=== PATIENT | female | born 1945 | race Caucasian/White ===

== ENCOUNTER 2022-01-18 13:18 | Outpatient (CLI) | payer MEDICARE, SELFPAY ==
--- NOTE | 2022-01-18 13:00 | CRLHL7_ITS ---
For Patients: As a result of the Century Cures Act, medical imaging exams and procedure reports are released immediately into your electronic medical record. You may view this report before your referring provider. If you have questions, please contact your health care provider. BILATERAL BREAST MRI WITHOUT AND WITH GADOLINIUM CLINICAL HISTORY: 75-year-old female with elevated risk of breast cancer due to prior tissue diagnosis of atypical ductal hyperplasia, status post LEFT excisional biopsy. INDICATION FOR BREAST MRI: Screening breast MRI in this high-risk woman. COMPARISON STUDIES: Breast MRI 02/01/2021, mammogram 07/26/2020, CONTRAST: 15 cc of Dotarem. TECHNIQUE: The patient was positioned prone using a breast coil. Multiple imaging sequences were obtained using 1-1.5 mm thick slices with no gap. The image sequences include T2-weighted STIR in the axial plane, T1-weighted nonfat-saturated gradient echo in the axial plane, pre- and post-contrast T1-weighted FLASH 3D with fat suppression in the axial plane, and T1-weighted FLASH high resolution 3D with fat suppression in the sagittal plane. Image post-processing was performed on a [employer] workstation. Complex 3D rendering including maximum intensity projections (MIPS) and volumetric renderings were obtained to optimize visualization of the extent of pathology and relationship to the nipple, skin, and chest wall. This aids in determining feasibility of breast conservation surgery. Subtraction, multiplanar reconstruction, mean curve determination, and angiogenesis mapping were also performed. The study was technically adequate. FINDINGS: Amount of Fibroglandular Tissue: Scattered fibroglandular tissue. Breast Background Enhancement: Mild to moderate. RIGHT Breast: No suspicious areas of enhancement. LEFT Breast: Postsurgical changes of excisional biopsy. No suspicious areas of enhancement. Lymph Nodes: No adenopathy. IMPRESSIONS AND RECOMMENDATIONS: Benign, there is no MRI evidence of malignancy. Continue annual screening mammography. BI-RADS Category 2: Benign A lay language report of this examination will be provided to the patient. Dictated by Dottie Mills MD @ 01/20/2022 8:45:06 AM emma/Dictated by: Dottie Mills MD @ 01/20/2022 8:45:00 AM (Electronically Signed)
== END 2022-01-18 13:19 | disposition home or self-care (01) ==
LOC: MRI 13:19
PROVIDERS: PCP Family Medicine; Visit Provider Internal Medicine Hematology & Oncology
DX: N60.82 Other benign mammary dysplasias of left breast (principal)
CPT/HCPCS: 77049; A9575

== ENCOUNTER 2022-07-25 13:49 | Outpatient (CLI) | payer MEDICARE, SELFPAY ==
--- NOTE | 2022-07-25 14:00 | CRLHL7_ITS ---
For Patients: As a result of the Century Cures Act, medical imaging exams and procedure reports are released immediately into your electronic medical record. You may view this report before your referring provider. If you have questions, please contact your health care provider. BILATERAL SCREENING MAMMOGRAM WITH COMPUTER-AIDED DETECTION TECHNIQUE: CC and MLO views were obtained. These mammographic images have been obtained using full-field digital technique. These mammographic images were interpreted with the benefit of computer-aided detection. COMPARISON FILM: 07/26/21, 07/27/20, 08/10/16. FINDINGS: There are scattered areas of fibroglandular density IMPRESSION: There is no radiographic evidence for malignancy. ASSESSMENT: BI-RADS Category 2: Benign RECOMMENDATION: Routine screening mammogram in 1 year. A lay language report of this examination will be provided to the patient. Monster Harmon M.D. Diagnostic Radiologist [email or web address] ANGEL/gen / be/Dictated by: Monster Harmon MD @ 07/26/2022 12:53:00 PM (Electronically Signed)
== END 2022-07-25 13:50 | disposition home or self-care (01) ==
PROVIDERS: PCP Family Medicine; Visit Provider Internal Medicine Hematology & Oncology
DX: Z12.31 Encounter for screening mammogram for malignant neoplasm of breast (principal)
CPT/HCPCS: 77067

== ENCOUNTER 2022-09-29 10:17 | Outpatient (RCR) | payer MEDICARE, SELFPAY ==
--- NOTE | 2022-07-08 15:24 | ONC.NURNOTE ---
LM for pt to call back to review [facility] oncology program ceasing and Dr. Lorenzo's transition to [facility], returning to [facility] Spring 2022. Pt due for f/u 10/2022 if continuing care here; screening mammogram sched 07/2022.
== END 2022-10-02 23:59 | disposition home or self-care (01) ==
LOC: CCIC 10:17
PROVIDERS: PCP Family Medicine; Visit Provider Internal Medicine Hematology & Oncology
DX: N60.91 Unspecified benign mammary dysplasia of right breast (principal); N60.92 Unspecified benign mammary dysplasia of left breast; Z87.891 Personal history of nicotine dependence; Z79.811 Long term (current) use of aromatase inhibitors
CPT/HCPCS: 99212; 99213; 99214

== ENCOUNTER 2023-01-19 13:00 | Outpatient (CLI) | payer MEDICARE, SELFPAY ==
--- NOTE | 2023-01-19 13:45 | CRLHL7_ITS ---
For Patients: As a result of the Century Cures Act, medical imaging exams and procedure reports are released immediately into your electronic medical record. You may view this report before your referring provider. If you have questions, please contact your health care provider. BILATERAL BREAST MRI WITHOUT AND WITH GADOLINIUM CLINICAL HISTORY: 77-year-old female with elevated risk of breast cancer due to prior ADH, status post excisional biopsy on the LEFT. INDICATION FOR BREAST MRI: Screening breast MRI in this high-risk woman. COMPARISON STUDIES: Mammogram 08/02/2022, 07/27/2020 is and 07/26/2021, breast MRI 01/18/2022. CONTRAST: 20 cc of dotarem. TECHNIQUE: The patient was positioned prone using a breast coil. Multiple imaging sequences were obtained using 1-1.5 mm thick slices with no gap. The image sequences include T2-weighted STIR in the axial plane, T1-weighted nonfat-saturated gradient echo in the axial plane, pre- and post-contrast T1-weighted FLASH 3D with fat suppression in the axial plane, and T1-weighted FLASH high resolution 3D with fat suppression in the sagittal plane. Image post-processing was performed on a [employer] workstation. Complex 3D rendering including maximum intensity projections (MIPS) and volumetric renderings were obtained to optimize visualization of the extent of pathology and relationship to the nipple, skin, and chest wall. This aids in determining feasibility of breast conservation surgery. Subtraction, multiplanar reconstruction, mean curve determination, and angiogenesis mapping were also performed. The study was technically adequate. FINDINGS: Amount of Fibroglandular Tissue: Scattered fibroglandular tissue. Breast Background Enhancement: Mild. RIGHT Breast: No suspicious areas of enhancement. LEFT Breast: Postsurgical changes of excisional biopsy. No suspicious areas of enhancement. Lymph Nodes: No adenopathy. IMPRESSIONS AND RECOMMENDATIONS: Benign, there is no MRI evidence of malignancy. Continued annual screening mammography. BI-RADS Category 2: Benign Dictated by Dottie Mills MD @ 01/25/2023 3:14:18 PM/quinton TOMMY/Dictated by: Dottie Mills MD @ 01/25/2023 3:14:00 PM (Electronically Signed)
== END 2023-01-19 13:01 | disposition home or self-care (01) ==
PROVIDERS: PCP Family Medicine; Visit Provider Internal Medicine Hematology & Oncology
DX: Z12.39 Encounter for other screening for malignant neoplasm of breast (principal); N60.82 Other benign mammary dysplasias of left breast; N60.81 Other benign mammary dysplasias of right breast
CPT/HCPCS: 77049; A9270; A9575

== ENCOUNTER 2023-01-19 13:24 | Outpatient (RCR) | payer MEDICARE, SELFPAY ==
--- NOTE | 2023-01-19 13:27 | A.ONCPRONO_ITS ---
[facility] Provider Note Clinic Note Narrative: Breast MRI sedation request Ms. Carlton follows at our clinic with medical oncology for management of atypical ductal hyperplasia. She was last seen by Dr. Rani Lorenzo 09/29/22. She is due for surveillance breast MRI today. She reports to me and to radiology that she doesn't think she can do the MRI today without a sedative. She confirms to me that her granddaughter is driving her home today. She has been given a sedative before, but is unsure what she has taken. She is alert, oriented and steady on her feet. After review of her medications and [place] [employer], will order oral dose of lorazepam 0.5mg PO today in the infusion center. Appreciate nursing to obtain vital signs and o2 sat prior to administration.
[2023-01-19] MEDS: LORazepam 0.5 MG TABLET PO (13:40)
[2023-01-19 13:48] VITALS: BP 134/70; PULSE 65; RESP 16; TEMP 36.2
== END 2023-07-18 23:59 | disposition home or self-care (01) ==
LOC: CCIC 13:24
PROVIDERS: PCP Family Medicine; Referring Provider Family Medicine; Visit Provider Clinical Nurse Specialist
DX: N60.91 Unspecified benign mammary dysplasia of right breast (principal); N60.92 Unspecified benign mammary dysplasia of left breast
CPT/HCPCS: A9270

== ENCOUNTER 2024-05-03 14:51 | Outpatient (CLI) | payer MEDICARE, SELFPAY ==
--- OUTSIDE RECORDS SUMMARY | 2024-05-03 14:58 | XMS_ITS | Clinical Summary ---
Author Organization [facility] Address [address] [place] [address] Care Team Providers Care Fleet Sales Manager Name Role Phone Chaparritarobelsterling Becky S Primary Care Provider [phone] Allergies No known active allergies Medications No known medications Social History Tobacco Use Types Packs/Day Years Used Date Smoking Tobacco: Never Assessed Adolescent Education Answer Date Record ed Getting School Help Needed Not on file 02/25 Comments Unknown Sex and Gender Information Value Date Recorded Sex Assigned at Not on file Legal Sex Female 9:06 PM CDT Gender Identity Not on file Sexual Orientation Not on file Last Filed Vital Signs Vital Sign Reading Time Taken Comments Blood Pressure 149/74 09/01/2023 12:00 PM CDT Pulse 65 09/01/2023 12:00 PM CDT Temperature 36.8 C (98.2 F) 09/01/2023 7:33 AM CDT Respiratory Rate 17 09/01/2023 10:00 AM CDT Oxygen Saturation 93% 09/01/2023 12:00 PM CDT Inhaled Oxygen Concentration - - Weight - - Height - - Body Mass Index - - Plan of Treatment Health Maintenance Due Date Last Done Comments ADVANCE CARE PLANNING 1945 ANNUAL REVIEW OF HM ORDERS 1945 DEXA 1945 HEPATITIS C SCREENING 10/21/1963 DTAP/TDAP/TD IMMUNIZATION (1 - Tdap) 1970 LIPID 1985 ZOSTER IMMUNIZATION (1 of 2) 10/21/1995 FALL RISK ASSESSMENT 2010 RSV VACCINE (1 - 1-dose 75+ series) 2020 PHQ-2 (once per calendar year) 2023 MEDICARE ANNUAL WELLNESS VISIT 12/01/2023 11/30/2022, 11/19/2021, 05/20/2020 COVID-19 Vaccine ( season) 2024 03/03/2021, 02/03/2021 INFLUENZA VACCINE (#1) 2024 , 03/02/2022, 05/21/2021, Additional history exists GLUCOSE 08/31/2026 09/01/2023 Pneumococcal Vaccine: 65+ Years Completed 05/20/2020, 05/20/2019 HPV IMMUNIZATION Aged Out No longer e ligible based on patient's age to complete this topic MENINGITIS IMMUNIZATION Aged Out No l onger eligible based on patient's age to complete this topic RSV MONOCLONAL ANTIBODY Aged Out No l onger eligible based on patient's age to complete this topic Procedures Procedure Name Priority Date/Time Associated Diagnosis Comments COMPREHENSIVE METABOLIC PANEL STAT 09/01/2023 8:05 AM CDT from Last 3 Months or Most Recently Relevant to Health Maintenance Results * (ABNORMAL) Comprehensive metabolic panel (09/01/2023 8:05 AM CDT) Sodium 138 135 - 145 mmol/L 09/01/2023 8:33 AM CDT [facility] Comment:Reference intervals for this test were updated on 02/28/2023 to more accurately reflect our healthy population. There may be differences in the flagging of prior results with similar values performed with this method. Interpretation of those prior results can be made in the context of the updated reference intervals. Potassium 3.9 3.4 - 5.3 mmol/L 09/01/2023 8:33 AM CDT [facility] Carbon Dioxide (CO2) 28 22 - 29 mmol/L 09/01/2023 8:33 AM CDT [facility] Anion Gap 9 7 - 15 mmol/L 09/01/2023 8:33 AM CDT [facility] Urea Nitrogen 16.2 8.0 - 23.0 mg/dL 09/01/2023 8:33 AM CDT [facility] Creatinine 0.91 0.51 - 0.95 mg/dL 09/01/2023 8:33 AM CDT [facility] GFR Estimate 65 >60 mL/min/1. 73m2 09/01/2023 8:33 AM CDT [facility] Calcium 10.8(H) 8.8 - 10.2 mg/dL 09/01/2023 8:33 AM CDT [facility] Chloride 101 98 - 107 mmol/L 09/01/2023 8:33 AM CDT [facility] Glucose 110(H) 70 - 99 mg/dL 09/01/2023 8:33 AM CDT [facility] Alkaline Phosphatase 50 40 - 150 U/L 09/01/2023 8:33 AM CDT [facility] Comment:Reference intervals for this test were updated on 04/18/2023 to more accurately reflect our healthy population. There may be differences in the flagging of prior results with similar values performed with this method. Interpretation of those prior results can be made in the context of the updated reference intervals. AST 14 0 - 45 U/L 09/01/2023 8:33 AM CDT [facility] Comment:Reference intervals for this test were updated on 11/14/2022 to more accurately reflect our healthy population. There may be differences in the flagging of prior results with similar values performed with this method. Interpretation of those prior results can be made in the context of the updated reference intervals. ALT 12 0 - 50 U/L 09/01/2023 8:33 AM CDT [facility] Comment:Reference intervals for this test were updated on 11/14/2022 to more accurately reflect our healthy population. There may be differences in the flagging of prior results with similar values performed with this method. Interpretation of those prior results can be made in the context of the updated reference intervals. Protein Total 6.7 6.4 - 8.3 g/dL 09/01/2023 8:33 AM CDT [facility] Albumin 3.9 3.5 - 5.2 g/dL 09/01/2023 8:33 AM CDT [facility] Bilirubin Total 0.2 <=1.2 mg/dL 09/01/2023 8:33 AM CDT [facility] Blood VENOUS LINE / Unknown Venipuncture / Unknown 09/01/2023 8:05 AM CDT 09/01/2023 8:09 AM CDT Renetta Trotter MD LAB - BLOOD ORDERABLES F inal Result [facility] [address] (1st floor, no room number) [place] [address], [facility] from Last 3 Months or Most Recently Relevant to Health Maintenance Insurance [employer] MEDICARE [employer] Care Teams Fleet Sales Manager Relationship Specialty [place] [address] [place] [address] PCP - General Family Medicine 09/01/23
--- OUTSIDE RECORDS SUMMARY | 2024-05-03 14:58 | XMS_ITS | Referral Summary ---
Author Organization [facility] Address [address] [facility] [place] [address] Care Team Providers Care Multiple Coil Winder Name Role Phone ChaparritarobelShaka katzluis manuel Amaya Primary Care Provider [phone] Allergies No known active allergies Medications No [...] Mass Index - - Plan of Treatment Not on file Procedures Procedure Name Priority Date/Time Associated Diagnosis [...] AM CDT 09/01/2023 8:09 AM CDT Renetta Trotetr MD LAB - BLOOD ORDERABLES F inal Result [facility] [address] [facility] (1st floor, no room number) [place] [address], [facility] from Last 3 Months or Most Recently Relevant to Health Maintenance Insurance [facility] MEDICARE [facility] MEDICARE Care Teams Multiple Coil Winder Relationship Specialty [place] [address] [place] [place] [address] PCP - General Family Medicine 09/01/23
--- OUTSIDE RECORDS SUMMARY | 2024-05-03 14:58 | XMS_ITS | Clinical Summary ---
Author Organization [facility] Address [address] [place] [address] Care Team Providers Care Material Engineer Name Role Phone Becky Hurley DO Primary Care Provider [phone] Source Comments You are receiving this document as you are listed as the primary care provider,follow-up provider, or the patient has been referred to you for consultation.This is in compliance with the Medicare and[facility] EHR Incentive Program,which states Providers who transition their patient to another setting of careor provider of care or refers their patient to another provider of care shouldprovide summary care record for each transition of care or referral. [facility] Allergies No known active allergies Medications Medication Sig Dispensed Refills Start Date End Date Status acetaminophen (TYLENOL) 500 MG tablet Take 2 Tablets by mouth three times a day. Maximum acetaminophen dose is 4000 mg in 24 hours 30 Tablet 09/03/2020 Active Social History Tobacco Use Types Packs/Day Years Used Date Smoking Tobacco: Never Assessed Sex and Gender Information Value Date Recorded Sex Assigned at Not on file Gender Identity Not on file Sexual Orientation Not on file Last Filed Vital Signs Vital Sign Reading Time Taken Comments Blood Pressure 148/74 09/03/2020 8:10 AM CDT Pulse 91 09/03/2020 8:10 AM CDT Temperature 36.6 C (97.8 F) 09/03/2020 8:10 AM CDT Respiratory Rate 16 09/03/2020 8:10 AM CDT Oxygen Saturation 97% 09/03/2020 8:10 AM CDT Inhaled Oxygen Concentration - - Weight 60.3 kg (133 lb) 09/03/2020 7:00 AM CDT Height 152.4 cm (5') 09/03/2020 12:59 AM CDT Body Mass Index 25.97 09/03/2020 12:59 AM CDT Plan of Treatment Health Maintenance Due Date Last Done Comments Hep C Screening (Preventive Services) 1945 Medicare Annual Wellness Visit 1945 DTaP/Tdap/Td (1 - Tdap) 1964 Zoster/Shingles (1 of 2) 10/21/1995 Dexa 2010 RSV (1 - 1-dose 75+ series) 2020 COVID-19 Vaccine (2 - 2023-2 5 season) 2024 02/03/2021 Influenza (#1) 2024 05/20/2020, 05/20/2019 Pneumococcal 65+ Yrs Completed 05/20/2020, 05/20/2019 HepA Aged Out No longer eligi ble based on patient's age to complete this topic HepB Aged Out No longer eligi ble based on patient's age to complete this topic Hib Aged Out No longer eligi ble based on patient's age to complete this topic IPV (Polio) Aged Out No longer eligi ble based on patient's age to complete this topic RSV Aged Out No longer eligi ble based on patient's age to complete this topic MCV4 Aged Out No longer eligi ble based on patient's age to complete this topic Advance Directives * Full Code (Latest Code Status on File) Date Activated Date Inactivated Comments 09/03/2020 12:56 AM 09/03/2020 4:37 PM Care Teams Material Engineer Relationship Specialty [place] [address] [place] [address] PCP - General Family Practice 09/02/20
--- OUTSIDE RECORDS SUMMARY | 2024-05-03 14:59 | XMS_ITS | Clinical Summary ---
Author Organization [employer] [facility] Address [place], [place] [address] Care Team Providers Care Sr. Merchandise Planner Name Role Phone Becky Hurley Primary Care Provider Allergies No known active allergies Medications Medication Sig Dispensed Refills Start Date End Date Status aspirin (ECOTRIN) 81 mg enteric coated tablet Take 1 tablet by mouth once daily with a meal. 0 9 Active Blood Pressure Monitor (Blood Pressure Kit) KitIndications:Dwain junior hypertension Diagnosis: hypertension Use as directed. OMRON arm cuff 1 Each 3 Active fexofenadine (VJ) 180 mg tablet Take 180 mg by mouth once daily. Active cholecalciferol, Vitamin D3, (Vitamin D-3) 5,000 unit tab tabletIndications:Vi tamin D deficiency Take 1 Tablet (5,000 units) by mouth once daily. 90 Tablet 3 3 Active rosuvastatin (CRESTOR) 20 mg tabletIndications:Ce rebrovascular accident (CVA) due to stenosis of middle cerebral artery, unspecified blood vessel laterality (HC),Dyslipidemia TAKE 1 TABLET BY MOUTH AT BEDTIME 90 Tablet 3 4 Active alendronate (FOSAMAX) 35 mg tabletIndications:Os teopenia of multiple sites TAKE 1 TABLET BY MOUTH WEEKLY IN THE MORNING ON AN EMPTY STOMACH WITH A FULL GLASS OF WATER. 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 90 Tablet 1 4 Active ondansetron (ZOFRAN ODT) 4 mg disintegrating tabletIndications:Na usea Place 1 Tablet (4 mg) on the tongue every 8 hours if needed for Nausea/Vomiting. 30 Tablet 1 4 Active fenofibrate nanocrystallized (TRICOR) 145 mg tabletIndications:Dy slipidemia Take 1 Tablet (145 mg) by mouth once daily with a meal. 100 Tablet 3 4 Active levothyroxine (SYNTHROID) 75 mcg tabletIndications:Hy pothyroidism (acquired) Take 1 Tablet (75 mcg) by mouth before breakfast. 100 Tablet 3 4 Active propranolol ER (INDERAL LA) 80 mg Cs24 Sustained-Release capsuleIndications:M igraine without aura and without status migrainosus, not intractable Take 1 Capsule (80 mg) by mouth once daily. 100 Capsule 3 4 Active amLODIPine (NORVASC) 5 mg tabletIndications:Es sential hypertension Take 1 Tablet (5 mg) by mouth once daily. 100 Tablet 3 4 Active escitalopram oxalate (LEXAPRO) 10 mg tabletIndications:Se nova episode of recurrent major depressive disorder, without psychotic features (HC) Take 1 Tablet (10 mg) by mouth once daily. 100 Tablet 3 4 Active fenofibrate nanocrystallized (TRICOR) 145 mg tabletIndications:Dy slipidemia Take 1 Tablet (145 mg) by mouth once daily with a meal. 90 Tablet 3 3 05/01/20 24 Discontinue d(Reorder (E-cancel not sent)) levothyroxine (SYNTHROID) 75 mcg tabletIndications:Hy pothyroidism (acquired) Take 1 Tablet (75 mcg) by mouth before breakfast. 90 Tablet 3 3 05/01/20 24 Discontinue d(Reorder (E-cancel not sent)) amLODIPine (NORVASC) 5 mg tabletIndications:Es sential hypertension TAKE 1 TABLET BY MOUTH ONCE DAILY 90 Tablet 3 4 05/01/20 24 Discontinue d(Reorder (E-cancel not sent)) propranolol ER (INDERAL LA) 80 mg Cs24 Sustained-Release capsuleIndications:M igraine without aura and without status migrainosus, not intractable TAKE 1 CAPSULE BY MOUTH ONCE DAILY 90 Capsule 4 05/01/20 24 Discontinue d(Reorder (E-cancel not sent)) escitalopram oxalate (LEXAPRO) 10 mg tabletIndications:Se nova episode of recurrent major depressive disorder, without psychotic features (HC) Take 1 Tablet (10 mg) by mouth once daily. 90 Tablet 1 4 05/01/20 24 Discontinue d(Reorder (E-cancel not sent)) nitrofurantoin macrocrystals/monohy drate (MACROBID) 100 mg capsuleIndications:U TI (urinary tract infection), uncomplicated Take 1 Capsule (100 mg) by mouth two times daily for 5 days. 10 Capsule 4 04/23/20 24 Active Problems Problem Noted Date Diagnosed Date Mild cognitive impairment 05/01/2024 Bilateral primary osteoarthritis of knee 024 Severe episode of recurrent major depressive disorder, without psychotic features 05/01/2024 Migraine without aura and wi thout status migrainosus, not intractable 05/01/2024 Current severe episode of ma stormy depressive disorder without psychotic features, unspecified whether recurrent 03/22/2023 Age-related osteoporosis wit hout current pathological fracture 12/08/2022 Overview (12/08/2022): DEXA 06/25/19: T-scores AP: 1.8, LFN -1.4, RFN -1.6. FRAX 11.1. DEXA 12/05/22: T-scores AP: 2.1, LFN -1.5, RFN -1.9. Forearm -3.0. osteoporosis. Stay on Fosamax for 5 years. Repeat DEXA in 2 years. History of melanoma 03/02/2022 Occult blood positive stool 02/03/2021 Overview (02/03/2021): Diagnostic colonoscopy ordered. Atypical ductal hyperplasia, breast 08/15/2019 Overview (12/16/2019): Left breast biopsy 12/2019: Proliferative fibrocystic change including intraductal papilloma COPD, mild 07/31/2019 Overview (07/31/2019): Spirometry 01/10/19 normal. Given an albuterol inhaler as needed for shortness of breath. Quit smoking 08/2017, smoked for a total of 60+ years 1ppd. Osteopenia of multiple sites 07/03/2019 Overview (12/08/2022): DEXA 06/25/19: T-scores AP: 1.8, LFN -1.4, RFN -1.6. FRAX 11.1. DEXA 12/05/22: T-scores AP: 2.1, LFN -1.5, RFN -1.9. Forearm -4.1. osteoporosis. Stay on Fosamax for 5 years. Repeat DEXA in 2 years. Tension headache 01/11/2019 Venous stasis 01/11/2019 Former smoker 01/11/2019 Environmental allergies 01/11/2019 Depression, major, in remission 10/03/2018 Essential hypertension 07/23/2018 Hypothyroidism (acquired) 07/23/2018 Overactive bladder 07/23/2018 Cerebrovascular accident (CV A) due to stenosis of middle cerebral artery 07/23/2018 Dyslipidemia 07/23/2018 Encounters Date Type Department Care Team Description 05/01/2024 12:45 PM COMMUNITY SUPPORT WORKER Ancillary Procedure [facility] [place] [address] [facility] [place] [place] [address] Arrived 05/01/2024 11:40 AM COMMUNITY SUPPORT WORKER Office Visit [facility] [place] [address] [place] [address] Becky Hurley, DO Medication Management (follow up); Immunization/Injecti on 05/01/2024 Travel 04/26/2024 Telephone [facility] [address] [place] [phone] Sulma Lewis, PhD, Error-please disregard 04/18/2024 9:45 AM COMMUNITY SUPPORT WORKER Orders Only [facility] [place] [address] [place] [address] Lab, Farm [facility] 04/18/2024 Orders Only [facility] [place] [address] [place] [address] Amira Gonzalez PA <No scans attached> 04/18/2024 Orders Only [facility] [place] [address] [place] [address] Amira Gonzalez PA <No scans attached> 04/18/2024 Travel 04/17/2024 Telephone [facility] [place] [address] [place] [address] Amira Gonzalez PA Lab (UA order ) 04/16/2024 3:40 PM COMMUNITY SUPPORT WORKER Orders Only [facility] [address] [address] <No scans attached> 04/16/2024 3:00 PM COMMUNITY SUPPORT WORKER Ancillary Procedure [facility] [address] [address] 04/16/2024 1:25 PM COMMUNITY SUPPORT WORKER Office Visit [facility] [place] [address] [place] [address] Amira Gonzalez PA Abdominal Pain (Cramping, nausea, diarrhea x 2 weeks ) 04/16/2024 Travel 04/11/2024 Telephone [facility] [place] [address] [place] [address] Becky Hurley DO Questions (Questions about care plan) 04/03/2024 10:00 AM CDT Office Visit [facility] [id number] [place] [address] James Melgar, EFREN Follow Up 04/03/2024 Travel 03/27/[address] [address] James Melgar NP Refill Request (Risperidone, Escitalopram Oxalate, Trazodone) 03/12/[address] [address] James Melgar NP Refill Request (Risperidone, Trazodone) 03/12/2024 Refill [facility] [place] [address] [place] [address] Becky Hurley DO Refill Request (Propranolol Er) 02/28/2024 10:00 AM CDT Office Visit [address] [address] James Melgar NP Follow Up 02/28/2024 Travel 02/15/[address] [address] James Melgar NP Refill Request (Escitalopram Oxalate) 02/09/2024 Refill [facility] [place] [address] [place] [address] Becky Hurley DO Refill Request (Propranolol Er) from Last 3 Months Immunizations Name Administration Dates Next Due COVID-19 vaccine (Moderna 100mcg/0.5mL) PF, MDV 03/03/2021,02/03/2021 Influenza, Inactivated AIIV4 (Age 65+ Years) Preserv Free 02/10/2023,03/02/2022,05/21/2021,2019 Influenza, Inactivated IIV3 (Age 65+ Years) Preserv Free 05/01/2024,05/20/2019 Pneumococcal Poly,23-Valent (Pneumovax) 05/20/2020 Pneumococcal conj 13-Valent (Prevnar 13) 05/20/2019 Family History Medical History Relation Name Comments No Known Problems Father Cancer-breast Maternal Aunt No Known Problems Mother Cancer-breast Other Maternal Cousi n Cancer-breast Sister Cancer-ovarian No Family History Relation Name Status Comments Father Maternal Aunt Mother Other Sister Social History Tobacco Use Types Packs/Day Years Used Date Smoking Tobacco: Every Day Cigarettes 0.2 1.3 Started: 01/2023; Last attempted to quit: 08/03/2017 Smokeless Tobacco: Former Tobacco Cessation:Ready to Q uit: Yes; Counseling Given: Yes Comments:1-2 cig a day. 11/08/2023 Alcohol Use Standard Drinks/Week Comments Yes 0 (1 standard drink = 0.6 oz pure alcohol) occassionally, monthly or less; 11/2023 PHQ-2 Answer Date Recorded PHQ-2 TOTAL SCORE 4 05/01/2024 Social Connections Answer Date Recorded Do you often feel lonely or isolated from those around you? 4 04/16/2024 Financial Resource Strain Answer Date R ecorded Difficulty of Paying Living Expenses 3 04/16/2024 Difficulty of Paying Living Expenses Not on file 04/16/2024 Food Insecurity Answer Date Recorded Do you worry your food will run out before you are able to buy more? 1 04/16/2024 Transportation Needs Answer Date Record ed Does lack of transportation keep you from medica l appointments? 1 04/16/2024 Does lack of transportation keep you from work, meetings or getting things that you need? 1 04/16/2024 Housing Stability Answer Date Recorded What is your housing situation today? 1 04/16/2024 Sex and Gender Information Value Date Recorded Sex Assigned at Not on file Gender Identity Not on file Sexual Orientation Not on file Obstetrics History Last Filed Vital Signs Vital Sign Reading Time Taken Comments Blood Pressure 114/64 05/01/2024 11:52 AM COMMUNITY SUPPORT WORKER Pulse 60 05/01/2024 11:52 AM COMMUNITY SUPPORT WORKER Temperature 37.1 C (98.7 F) 04/16/2024 1:34 PM COMMUNITY SUPPORT WORKER Respiratory Rate 18 12/02/2022 3:04 PM CDT Oxygen Saturation 97% 05/01/2024 11:52 AM COMMUNITY SUPPORT WORKER Inhaled Oxygen Concentration - - Weight 60.8 kg (134 lb) 05/01/2024 11:52 AM COMMUNITY SUPPORT WORKER Height 154.9 cm (5' 1) 04/16/2024 1:34 PM COMMUNITY SUPPORT WORKER Body Mass Index 25.32 04/16/2024 1:34 PM COMMUNITY SUPPORT WORKER Plan of Treatment Upcoming Encounters Date Type Department Care Team (Late st Contact Info) Description 05/14/2024 1:00 PM COMMUNITY SUPPORT WORKER Office Visit [facility] [place] [address] [place] [address] Lizzy Hernández PA [address] [place] [address] 05/22/2024 1:15 PM COMMUNITY SUPPORT WORKER Office Visit [facility] [place] [address] [place] [address] [place] [address] [place] [address] 05/22/2024 2:30 PM COMMUNITY SUPPORT WORKER Office Visit [facility] [address] [place] [phone] Sulma Lewis, PhD, LP [address] [place] [address] 05/23/2024 11:30 AM COMMUNITY SUPPORT WORKER Office Visit [facility] [address] [place] [address] [place] [address] [place] [address] 06/10/2024 2:30 PM COMMUNITY SUPPORT WORKER Office Visit [facility] [address] [place] [phone] Sulma Lewis, PhD, LP [address] [place] [address] 06/24/2024 2:30 PM COMMUNITY SUPPORT WORKER Office Visit [facility] [address] [place] [phone] Sulma Lewis, PhD, LP [address] [place] [address] 07/08/2024 2:30 PM COMMUNITY SUPPORT WORKER Office Visit [facility] [address] [place] [phone] Sulma Lewis, PhD, LP [address] [place] [address] 11/20/2024 11:15 AM CDT Office Visit [facility] [place] [address] [place], [place] [phone] [place] [address] [facility] [place], [place] [phone] Health Maintenance Due Date Last Done Comments Tdap 1956 Tetanus booster 1965 Zoster (shingles) series for age 50+ (1 of 2) 10/21/1995 RSV vaccine for adults or (1 - 1-dose 75+ series) 2020 COVID-19 vaccine series ( season) 2024 03/03/2021, 02/03/2021 Medicare Wellness for age 65+ 11/29/2024, 11/30/2022, 11/19/2021, Additional history exists BMI (ht and wt on same day) for age 18+ 04/16/2025 04/16/2024, 11/29/2023, 03/22/2023, Additional history exists Depression screening for age 12+ 05/01/2025 05/01/2024, 04/03/2024, 02/28/2024, Additional history exists Hepatitis C screening for ag e 18-79 Completed 05/20/2019 Pneumococcal series for age 65+ Completed , 05/20/2019 DEXA/DXA scan for age 65+ Completed 12/05/2022, Influenza for age 65+ Completed 05/01/2024 , 02/10/2023, 03/02/2022, Additional history exists Procedures Procedure Name Priority Date/Time Associated Diagnosis Comments BASIC METABOLIC PANEL Routine 05/01/2024 1:15 PM COMMUNITY SUPPORT WORKER Essential hypertension LIPID PANEL W REFLEX MEASURED LDL Routine 05/01/2024 1:15 PM COMMUNITY SUPPORT WORKER Dyslipidemia TSH WITH REFLEX Routine 05/01/2024 1:15 PM COMMUNITY SUPPORT WORKER Hypothyroidism (acquired) XR KNEE WB 1 VIEW AP BILATERAL AND 2 VIEWS BILATERAL Routine 05/01/2024 12:56 PM COMMUNITY SUPPORT WORKER Bilateral primary osteoarthritis of knee URINE CULTURE Add On 04/18/2024 10:31 AM COMMUNITY SUPPORT WORKER Abdominal pain, generalized URINALYSIS MICROSCOPIC Add On 04/18/2024 10:31 AM COMMUNITY SUPPORT WORKER Abdominal pain, generalized URINALYSIS MACROSCOPIC - [facility] ONLY POC DIP ([facility]) Routine 04/18/2024 10:03 AM COMMUNITY SUPPORT WORKER Abdominal pain, generalized CT ABDOMEN PELVIS W JETHRO 04/16/2024 3:19 PM COMMUNITY SUPPORT WORKER Acute diarrhea Abdominal pain, generalized CREATININE,ISTAT Routine 04/16/2024 3:02 PM COMMUNITY SUPPORT WORKER Observation or evaluation for suspected condition CBC WITH AUTO DIFFERENTIAL Routine 04/16/2024 1:54 PM COMMUNITY SUPPORT WORKER Acute diarrhea LIPASE Routine 04/16/2024 1:54 PM COMMUNITY SUPPORT WORKER Acute diarrhea COMP METABOLIC PANEL Routine 04/16/2024 1:54 PM COMMUNITY SUPPORT WORKER Acute diarrhea XR DXA BONE DENSITY 2 SITES AXIAL AND 1 SITE PERIPHERAL Routine 12/05/2022 1:37 PM CDT Osteopenia of multiple sites ANTI HCV Routine 05/20/2019 2:03 PM COMMUNITY SUPPORT WORKER Need for hepatitis C screening test from Last 3 Months or Most Recently Relevant to Health Maintenance Results * TSH WITH REFLEX (05/01/2024 1:15 PM COMMUNITY SUPPORT WORKER) TSH W/REFLEX TO FT4 1.58 0.40 - 4.50 mIU/L [facility] Blood BLOOD SPECIMEN / Unknown 05/01/2024 1:15 PM COMMUNITY SUPPORT WORKER 05/01/2024 1:16 PM COMMUNITY SUPPORT WORKER Becky Sue Xavi DO CHEMISTRY [facility] [address] [place] [address], [facility] [address] [place] [address] * (ABNORMAL) LIPID PANEL W REFLEX MEASURED LDL (05/01/2024 1:15 PM COMMUNITY SUPPORT WORKER) Pathologist [facility] CHOLESTEROL, TOTAL 151 <200 mg/dL [facility] HDL CHOLESTEROL 61 > OR = 50 mg/dL [facility] TRIGLYCERIDES 166(H) <150 mg/dL [facility] LDL-CHOLESTEROL 66 mg/dL (calc) [facility] Comment: Reference range: <100 Desirable range <100 mg/dL for primary prevention; <70 mg/dL for patients with CHD or diabetic patients with > or = 2 CHD risk factors. LDL-C is now calculated using the Jaron calculation, which is a validated novel method providing better accuracy than the Friedewald equation in the estimation of LDL-C. Oziel SEE et al. MYKE. 2013;310(19): 2253-5121 (http://education.[employer]/faq/YTG108) CHOL/HDLC RATIO 2.5 <5.0 (calc) [facility] NON HDL CHOLESTEROL 90 <130 mg/dL (calc) [facility] Comment: For patients with diabetes plus 1 major ASCVD risk factor, treating to a non-HDL-C goal of <100 mg/dL (LDL-C of <70 mg/dL) is considered a therapeutic option. Blood BLOOD SPECIMEN / Unknown 05/01/2024 1:15 PM COMMUNITY SUPPORT WORKER 05/01/2024 1:16 PM COMMUNITY SUPPORT WORKER Becky Huang Xavi DO CHEMISTRY [facility] [address] [place] [address], [facility] [address] [place] [address] * (ABNORMAL) BASIC METABOLIC PANEL (05/01/2024 1:15 PM COMMUNITY SUPPORT WORKER) Pathologist [facility] GLUCOSE 86 65 - 99 mg/dL [facility] Comment: Fasting reference interval UREA NITROGEN (BUN) 15 7 - 25 mg/dL [facility] CREATININE 1.01(H) 0.60 - 1.00 mg/dL [facility] EGFR 57(L) > OR = 60 mL/min/1.7 3m2 [facility] BUN/CREATININE RATIO 15 6 - 22 (calc) [facility] SODIUM 137 135 - 146 mmol/L [facility] POTASSIUM 3.9 3.5 - 5.3 mmol/L [facility] CHLORIDE 102 98 - 110 mmol/L [facility] CARBON DIOXIDE 27 20 - 32 mmol/L [facility] ELECTROLYTE BALANCE 8 7 - 17 mmol/L (calc) [facility] CALCIUM 9.8 8.6 - 10.4 mg/dL [facility] Blood BLOOD SPECIMEN / Unknown 05/01/2024 1:15 PM COMMUNITY SUPPORT WORKER 05/01/2024 1:16 PM COMMUNITY SUPPORT WORKER Becky Huang Xavi DO CHEMISTRY [facility] [address] [place] [address], [facility] [address] [place] [address] * XR KNEE WB 1 VIEW AP BILATERAL AND 2 VIEWS BILATERAL (05/01/2024 12:56 PM COMMUNITY SUPPORT WORKER) Anatomical Region Laterality Modality KNEES Computed Radiogr aphy 05/01/2024 4:11 PM COMMUNITY SUPPORT WORKER Narrative 05/01/2024 4:11 PM COMMUNITY SUPPORT WORKER For Patients: As a result of the Cures Act, medical imaging exams and procedure reports are released immediately into your electronic medical record. You may view this report before your referring provider. If you have questions, please contact your health care provider. Indication: Bilateral primary osteoarthritis of knee Technique: Three views each knee, 6 views total Comparison: None Findings: Vascular calcifications noted bilaterally. Severe narrowing at the lateral facet of the right patellofemoral compartment with reactive sclerotic change. Lateral compartment narrowing and spurring right knee. Medial compartment narrowing left knee. Osteopenia. No fracture. No large joint effusion. Impression: Severe patellofemoral compartment degenerative joint disease right knee. Milder lateral compartment degenerative joint disease right knee and medial compartment degenerative joint disease left knee. Dictated by Monster Harmon MD @ 05/01/2024 4:11:56 PM (Electronically Signed) Procedure Note Monster Harmon MD - 05/01/2024 For Patients: As a result of the s Act, medical imagingexams and procedure reports are released immediately into your electronicmedical record. You may view this report before your referring provider.If you have questions, please contact your health care provider. Indication: Bilateral primary osteoarthritis of knee Technique: Three views each knee, 6 views total Comparison: None Findings: Vascular calcifications noted bilaterally. Severe narrowing at the lateralfacet of the right patellofemoral compartment with reactive scleroticchange. Lateral compartment narrowing and spurring right knee. Medialcompartment narrowing left knee. Osteopenia. No fracture. No large jointeffusion. Impression: Severe patellofemoral compartment degenerative joint disease right knee. Milder lateral compartment degenerative joint disease right knee andmedial compartment degenerative joint disease left knee. Dictated by Monster Harmon MD @ 05/01/2024 4:11:56 PM (Electronically Signed) Becky Hurley DO GENERAL IMAGING * (ABNORMAL) URINALYSIS MICROSCOPIC (04/18/2024 10:31 AM COMMUNITY SUPPORT WORKER) WBC UA PACKED(A) < OR = 5 /HPF [facility] RBC UA 0-2 < OR = 2 /HPF [facility] SQUAMOUS EPITHELIAL CELLS UA 10-20(A) < OR = 5 /HPF [facility] BACTERIA UA MANY(A) NONE SEEN /HPF [facility] HYALINE CAST 6-10(A) NONE SEEN /LPF [facility] NOTE UA [facility] Comment: This urine was analyzed for the presence of WBC, RBC, bacteria, casts, and other formed elements. Only those elements seen were reported. Urine URINE SPECIMEN / Unknown 04/18/2024 10:31 AM COMMUNITY SUPPORT WORKER 04/18/2024 10:31 AM COMMUNITY SUPPORT WORKER Amira CHANDLER URINE [facility] [address] [place] [address], [facility] [address] [place] [address] * (ABNORMAL) URINE CULTURE (04/18/2024 10:31 AM COMMUNITY SUPPORT WORKER) CULTURE, URINE, ROUTINE SEE NOTE(A) [facility] Comment: CULTURE, URINE, ROUTINE Micro Number: [id number] Test Status: Final Specimen Source: Urine, clean catch Specimen Quality: Adequate Result: Greater than 100,000 CFU/mL of Escherichia coli E.coli INT CINTHIA AMOX/CLAVULANATE S 4 AMP/SULBACTAM S 4 CEFAZOLIN NR <=4 2 CEFEPIME S <=0.12 CEFTAZIDIME S <=1 CEFTRIAXONE S <=0.25 CIPROFLOXACIN S <=0.06 GENTAMICIN S <=1 IMIPENEM S <=0.25 LEVOFLOXACIN S <=0.12 MEROPENEM S <=0.25 NITROFURANTOIN S <=16 PIP/TAZOBACTAM S <=4 TRIMETHOPRIM/SULFA S <=20 S = Susceptible I = Intermediate R = Resistant NS = Not susceptible SDD = Susceptible Dose Dependent * = Not Tested NR = Not Reported NN = See Therapy Comments THERAPY COMMENTS Note 1: For infections other than uncomplicated UTI caused by E. coli, K. pneumoniae or P. mirabilis: Cefazolin is resistant if CINTHIA > or = 8 mcg/mL. (Distinguishing susceptible versus intermediate for isolates with CINTHIA < or = 4 mcg/mL requires additional testing.) Note 2: For uncomplicated UTI caused by E. coli, K. pneumoniae or P. mirabilis: Cefazolin is susceptible if CINTHIA <32 mcg/mL and predicts susceptible to the oral agents cefaclor, cefdinir, cefpodoxime, cefprozil, cefuroxime, cephalexin and loracarbef. Urine URINE SPECIMEN / Unknown 04/18/2024 10:31 AM COMMUNITY SUPPORT WORKER 04/18/2024 10:31 AM COMMUNITY SUPPORT WORKER Amira CHANDLER MICROBIOLOGY [facility] [address] [place] [address], [facility] [address] [place] [address] * (ABNORMAL) POCT Urinalysis Dipstick Only (04/18/2024 10:03 AM COMMUNITY SUPPORT WORKER) Pathologist [facility] PH 5.5 5.0 - 8.[address] [facility] SPECIFIC GRAVITY 1.020 1.001 - 1.[address] [facility] GLUCOSE NEGATIVE NEGATIVE [facility] BILIRUBIN NEGATIVE NEGATIVE [facility] KETONES NEGATIVE NEGATIVE [facility] OCCULT BLOOD 1+(A) NEGATIVE [facility] PROTEIN 1+(A) NEGATIVE [facility] NITRITE POSITIVE(A) NEGATIVE [facility] LEUKOCYTE ESTERASE 2+(A) NEGATIVE [facility] Urine URINE SPECIMEN / Unknown 04/18/2024 10:03 AM COMMUNITY SUPPORT WORKER 04/18/2024 10:03 AM COMMUNITY SUPPORT WORKER Amira CHANDLER URINE [facility] [address] [place] [address], [facility] [address], [place] [address] * CT ABDOMEN PELVIS W (04/16/2024 3:19 PM COMMUNITY SUPPORT WORKER) Anatomical Region Laterality Modality Abdomen, Pelvis, AORTA, LIVER, SPLEEN Computed Tomography 04/17/2024 7:53 AM COMMUNITY SUPPORT WORKER Impressions 04/17/2024 7:53 AM COMMUNITY SUPPORT WORKER 1. Diffuse colonic diverticulosis without diverticulitis. Fecal retention. No mechanical obstruction of large bowel or small bowel. Mildly prominent loops of small bowel which may represent an enteritis. There is no other potential specific visible cause which might explain diarrhea and abdominal pain on this exam 2. Other incidental nonacute appearing findings as discussed in the body of the report. Please note that all CT scans at this facility use dose modulation, iterative reconstruction, and/or weight-based dosing when appropriate to reduce radiation dose to as low as reasonably achievable. Dictated by Hadley Arroyo MD @ 04/17/2024 7:53:32 AM (Electronically Signed) Narrative 04/17/2024 7:53 AM COMMUNITY SUPPORT WORKER For Patients: As a result of the 21st Century Cures Act, medical imaging exams and procedure reports are released immediately into your electronic medical record. You may view this report before your referring provider. If you have questions, please contact your health care provider. INDICATION: Diarrhea and abdominal pain. COMPARISON: None TECHNIQUE: CT examination of the abdomen and pelvis was performed following the uneventful intravenous administration of 100 cc of Omnipaque 350. Thin section axial images were obtained from the lung bases through the pubic symphysis. Oral contrast was not administered. Please note that all CT scans at this facility use dose modulation, iterative reconstruction, and/or weight-based dosing when appropriate to reduce radiation dose to as low as reasonably achievable. FINDINGS: LUNG BASES: The lung bases as visualized appear normal.Heart size top-normal at the lung bases. LIVER/BILIARY SYSTEM:The liver is normal in size and configuration. There is no focal mass and there is no intra- or extra hepatic biliary ductal dilatation.Hepatic steatosis. Normal-appearing gallbladder. ADRENALS: Normal KIDNEYS, URETERS and BLADDER:Normal-sized kidneys. Probably benign low-density renal lesions. No hydronephrosis or hydroureter. The bladder is unremarkable in appearance. SPLEEN:Normal appearance. PANCREAS: Appears normal. RETROPERITONEUM and MESENTERY: There is no mass, adenopathy or aortic aneurysm. There are dense atherosclerotic vascular calcification GASTROINTESTINAL SYSTEM: Diffuse colonic fecal retention. No mechanical obstruction of the large bowel. Severe diffuse diverticulosis involving the near entirety of the colon. However, there is no evidence of diverticulitis or colitis. Mildly prominent loops of small bowel but no significant fecalization, wall thickening or air- fluid levels. This probably represents a mild diffuse enteritis PELVIS: No mass, adenopathy or free fluid. OSSEOUS STRUCTURES and ABDOMINAL WALL: Degenerative changes.No acute abdominal wall abnormality OTHER: No free fluid or free air. Procedure Note Hadley Arroyo MD - 04/17/2024 For Patients: As a result of the Cures Act, medical imagingexams and procedure reports are released immediately into your electronicmedical record. You may view this report before your referring provider.If you have questions, please contact your health care provider. INDICATION: Diarrhea and abdominal pain. COMPARISON: None TECHNIQUE: CT examination of the abdomen and pelvis was performed following theuneventful intravenous administration of 100 cc of Omnipaque 350. Thinsection axial images were obtained from the lung bases through the pubicsymphysis. Oral contrast was not administered. Please note that all CT scans at this facility use dose modulation,iterative reconstruction, and/or weight-based dosing when appropriate toreduce radiation dose to as low as reasonably achievable. FINDINGS: LUNG BASES: The lung bases as visualized appear normal.Heart sizetop-normal at the lung bases. LIVER/BILIARY SYSTEM:The liver is normal in size and configuration. Thereis no focal mass and there is no intra- or extra hepatic biliary ductaldilatation.Hepatic steatosis. Normal-appearing gallbladder. ADRENALS: Normal KIDNEYS, URETERS and BLADDER:Normal-sized kidneys. Probably benignlow-density renal lesions. No hydronephrosis or hydroureter. The bladderis unremarkable in appearance. SPLEEN:Normal appearance. PANCREAS: Appears normal. RETROPERITONEUM and MESENTERY: There is no mass, adenopathy or aorticaneurysm. There are dense atherosclerotic vascular calcification GASTROINTESTINAL SYSTEM: Diffuse colonic fecal retention. No mechanicalobstruction of the large bowel. Severe diffuse diverticulosis involvingthe near entirety of the colon. However, there is no evidence ofdiverticulitis or colitis. Mildly prominent loops of small bowel but nosignificant fecalization, wall thickening or air- fluid levels. Thisprobably represents a mild diffuse enteritis PELVIS: No mass, adenopathy or free fluid. OSSEOUS STRUCTURES and ABDOMINAL WALL: Degenerative changes.No acuteabdominal wall abnormality OTHER: No free fluid or free air. IMPRESSION: 1. Diffuse colonic diverticulosis without diverticulitis. Fecal retention.No mechanical obstruction of large bowel or small bowel. Mildly prominentloops of small bowel which may represent an enteritis. There is no otherpotential specific visible cause which might explain diarrhea andabdominal pain on this exam 2. Other incidental nonacute appearing findings as discussed in the bodyof the report. Please note that all CT scans at this facility use dose modulation,iterative reconstruction, and/or weight-based dosing when appropriate toreduce radiation dose to as low as reasonably achievable. Dictated by Hadley Arroyo MD @ 04/17/2024 7:53:32 AM (Electronically Signed) Amira CHANDLER CT * POCT Creatinine (04/16/2024 3:02 PM COMMUNITY SUPPORT WORKER) POCT,CREATININE , ISTAT 1.1 0.6 - 1.3 mg/dL [facility] Blood BLOOD SPECIMEN / Unknown 04/16/2024 3:02 PM COMMUNITY SUPPORT WORKER 04/16/2024 3:02 PM COMMUNITY SUPPORT WORKER Amira CHANDLER CHEMISTRY [facility] [address] [place] [address], [facility] [address] [place] [address] * CBC AND DIFFERENTIAL (04/16/2024 1:54 PM COMMUNITY SUPPORT WORKER) WHITE BLOOD CELL COUNT 10.2 3.8 - 10.8 Thousand/u L [facility] RED BLOOD CELL COUNT 4.09 3.80 - 5.10 Million/uL [facility] HEMOGLOBIN 11.9 11.7 - 15.5 g/dL [facility] HEMATOCRIT 36.5 35.0 - 45.0 % [facility] MCV 89.2 80.0 - 100.0 fL [facility] MCH 29.1 27.0 - 33.0 pg [facility] MCHC 32.6 32.0 - 36.0 g/dL [facility] Comment: For adults, a slight decrease in the calculated MCHC value (in the range of 30 to 32 g/dL) is most likely not clinically significant; however, it should be interpreted with caution in correlation with other red cell parameters and the patient's clinical condition. RDW 12.1 11.0 - 15.0 % [facility] PLATELET COUNT 350 140 - 400 Thousand/u L [facility] MPV 10.2 7.5 - 12.5 fL [facility] ABSOLUTE NEUTROPHILS 7,762 1,500 - 7,800 cells/uL [facility] ABSOLUTE LYMPHOCYTES 1,438 850 - 3,900 cells/uL [facility] ABSOLUTE MONOCYTES 673 200 - 950 cells/uL [facility] ABSOLUTE EOSINOPHILS 296 15 - 500 cells/uL [facility] ABSOLUTE BASOPHILS 31 0 - 200 cells/uL [facility] NEUTROPHILS 76.1 % [facility] LYMPHOCYTES 14.1 % [facility] MONOCYTES 6.6 % [facility] EOSINOPHILS 2.9 % [facility] BASOPHILS 0.3 % [facility] Blood BLOOD SPECIMEN / Unknown 04/16/2024 1:54 PM COMMUNITY SUPPORT WORKER 04/16/2024 1:58 PM COMMUNITY SUPPORT WORKER Narrative [facility] - 04/17/2024 4:27 AM COMMUNITY SUPPORT WORKER COLLECTION KIT GIVEN TO PATIENT. PATIENT ADVISED TO RETURN. Amira CHANDLER HEMATOLOGY Performing Organization Address [facility]/ZIP Co de Phone Number [employer] [facility] [address] [place] [address], [place] [phone] [facility] [address] [place] [address] * LIPASE (04/16/2024 1:54 PM COMMUNITY SUPPORT WORKER) Pathologist [facility] LIPASE 15 7 - 60 U/L [facility] Blood BLOOD SPECIMEN / Unknown 04/16/2024 1:54 PM COMMUNITY SUPPORT WORKER 04/16/2024 1:58 PM COMMUNITY SUPPORT WORKER Narrative [facility] - 04/17/2024 6:53 AM COMMUNITY SUPPORT WORKER COLLECTION KIT GIVEN TO PATIENT. PATIENT ADVISED TO RETURN. Amira CHANDLER CHEMISTRY Performing Organization Address [facility] Co de Phone Number [facility] [facility] [address] [facility] [place] [address], [place] [phone] [facility] [address] [place] [address] * (ABNORMAL) COMP METABOLIC PANEL (04/16/2024 1:54 PM COMMUNITY SUPPORT WORKER) GLUCOSE 87 65 - 99 mg/dL [facility] Comment: Fasting reference interval UREA NITROGEN (BUN) 17 7 - 25 mg/dL [facility] CREATININE 1.03(H) 0.60 - 1.00 mg/dL [facility] EGFR 56(L) > OR = 60 mL/min/1.7 3m2 [facility] BUN/CREATININE RATIO 17 6 - 22 (calc) [facility] SODIUM 137 135 - 146 mmol/L [facility] POTASSIUM 4.4 3.5 - 5.3 mmol/L [facility] CHLORIDE 101 98 - 110 mmol/L [facility] CARBON DIOXIDE 28 20 - 32 mmol/L [facility] CALCIUM 10.6(H) 8.6 - 10.4 mg/dL [facility] PROTEIN, TOTAL 5.9(L) 6.1 - 8.1 g/dL [facility] ALBUMIN 3.5(L) 3.6 - 5.1 g/dL [facility] GLOBULIN 2.4 1.9 - 3.7 g/dL (calc) [facility] ALBUMIN/GLOBULIN RATIO 1.5 1.0 - 2.5 (calc) [facility] BILIRUBIN, TOTAL 0.5 0.2 - 1.2 mg/dL [facility] ALKALINE PHOSPHATASE 51 37 - 153 U/L [facility] AST 12 10 - 35 U/L [facility] ALT 7 6 - 29 U/L [facility] Blood BLOOD SPECIMEN / Unknown 04/16/2024 1:54 PM COMMUNITY SUPPORT WORKER 04/16/2024 1:58 PM COMMUNITY SUPPORT WORKER Narrative [facility] - 04/17/2024 6:53 AM COMMUNITY SUPPORT WORKER COLLECTION KIT GIVEN TO PATIENT. PATIENT ADVISED TO RETURN. Amira CHANDLER CHEMISTRY [facility] [address] [place] [address], [facility] [address] [place] [address] * (ABNORMAL) XR DXA BONE DENSITY 2 SITES AXIAL AND 1 SITE PERIPHERAL (12/05/2022 1:37 PM CDT) Anatomical Region Laterality Modality LUMBAR SPINE Other Impressions 12/08/2022 1:09 PM CDT Osteoporosis. Consider a drug holiday from bisphosphonates if indicated. Due to the stability of the bone density, continue present medication if indicated. RECOMMENDATIONS: The National Osteoporosis Foundation recommends pharmacologic treatment for patients with T-scores of -2.5 or less, patients with prior history of fragility fractures, or patients with 10-year probability of greater than 3% at hips or greater than 20% of suffering major osteoporotic fractures. Recommend continued optimization of calcium and vitamin D intake through dietary means and/or supplementation and regular exercise. Repeat scan recommended in 2 years. Caitlyn Rosenthal PA-C [facility] 12/08/2022 Narrative 12/08/2022 1:09 PM CDT For Patients: Results are automatically released to your [facility] ([employer]) account once available, in compliance with federal regulations. This means that you may see your results before your provider has had a chance to review them. Please allow 2-3 business days for your provider to comment on the results. XR DXA Bone Mineral Density (BMD) EXAM LOCATION: [address] [address] PATIENT NAME: Sofia Carlton DATE OF : 1945 EXAM DATE: 12/05/2022 REQUESTING PROVIDER: Becky Hurley DO GENDER AT : female HEIGHT: 5' (11/30/2022) WEIGHT: 126 lb 9.6 oz (11/30/2022) MENOPAUSAL STATUS: Postmenopausal RACE/ETHNICITY: White RISK FACTORS: Aromatase Inhibitors (Arimidex, etc.), Family History of Osteoporosis, Height Loss (2 inches or more), Renal Failure, Smoking (prior), Weight < 127 lbs., and White Race CURRENT MEDICATION FOR BONE LOSS: Alendronate (Fosamax) INDICATION: Follow-up of existing osteopenia COMPARISON DATE(S): 2019 DXA scans are compared to prior studies for a patient only when the two (or more) studies were performed on the same scanner. It is not possible to compare data generated on one scanner to data from another because there are not standards in DXA equipment. This applies even if the two scanners are made by the same yard labor supervisor. PROCEDURE: Dual-energy x-ray absorptiometry performed with routine technique. Reporting is completed in the form of a T-score. The T-score represents the standard deviation from peak bone mass based on young healthy adult. A Z-score is used for diagnosis in premenopausal women, and for men under the age of 50. FINDINGS: RESULT LUMBAR SPINE L2 &L4 (L1 &L3) BMD: 1.476 g/cm2 T-Score: + 2.1 Z-Score: + 4.1 Change from prior in 2020: Increase 9.0%. RESULTS FEMUR Left femoral neck BMD: 0.835 g/cm2 T-Score: - 1.5 Z-Score: + 0.7 Change from prior in 2020: Decrease 1.3%. Right femoral neck BMD: 0.779 g/cm2 T-Score: - 1.9 Z-Score: + 0.3 Change from prior in 2020: Decrease 4.9%. Left hip BMD: 0.908 g/cm2 T-Score: - 0.8 Z-Score: + 1.2 Change from prior in 2020: Increase 0.2%. Right hip BMD: 0.830 g/cm2 T-Score: - 1.4 Z-Score: + 0.6 Change from prior in 2020: Decrease 5.3%. RESULT FOREARM Left Forearm distal radius BMD: 0.494 g/cm2 T-Score: - 3.0 Z-Score: - 0.5 Change from prior: None WHO criteria: Normal: T-score at or above -1 SD Osteopenia: T-score between -1.1 and -2.4 SD Osteoporosis: T-score at or below -2.5 SD Becky Hurley DO DEXA * ANTI HCV (05/20/2019 2:03 PM COMMUNITY SUPPORT WORKER) HEPATITIS C ANTIBODY Non-React miguelito Non-React miguelito 05/20/2019 8:59 PM COMMUNITY SUPPORT WORKER [facility] [employer] [facility] Comment:Antibodies to HCV no t detected; does not exclude the possibility of exposure to HCV. Blood BLOOD SPECIMEN / Unknown Venipuncture / Unknown 05/20/2019 2:03 PM COMMUNITY SUPPORT WORKER 05/20/2019 2:03 PM COMMUNITY SUPPORT WORKER Becky Hurley DO SEND OUTS [facility] 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 Merchandise Planner Relationship Specialty [place] [address] [place] [address] PCP - General Family Practice 09/05/18
--- NOTE | 2024-05-03 15:00 | CRLHL7_ITS ---
For Patients: As a result of the Century Cures Act, medical imaging exams and procedure reports are released immediately into your electronic medical record. You may view this report before your referring provider. If you have questions, please contact your health care provider. BILATERAL SCREENING MAMMOGRAM WITH COMPUTER-AIDED DETECTION AND TOMOSYNTHESIS TECHNIQUE: CC and MLO views were obtained. These mammographic images have been obtained using full-field digital technique. These mammographic images were interpreted with the benefit of computer-aided detection. Breast Tomosynthesis was used in this interpretation. COMPARISON FILM: 07/25/22, 07/26/21, 07/27/20. FINDINGS: There are scattered areas of fibroglandular density. IMPRESSION: There is no radiographic evidence for malignancy. ASSESSMENT: BI-RADS Category 2: Benign RECOMMENDATION: Routine screening mammogram in 1 year. A lay language report of this examination will be provided to the patient. oMnster Harmon M.D. Diagnostic Radiologist [email or web address] SP/Dictated by: Monster Harmon MD @ 05/08/2024 11:16:00 AM (Electronically Signed)
== END 2024-05-03 14:52 | disposition home or self-care (01) ==
LOC: MAMMO 14:57
PROVIDERS: PCP Family Medicine; Visit Provider Internal Medicine Hematology & Oncology
DX: Z12.31 Encounter for screening mammogram for malignant neoplasm of breast (principal)
CPT/HCPCS: 77063; 77067

== ENCOUNTER 2024-06-24 14:33 | Outpatient (RCR) | payer MEDICARE, SELFPAY | END 2024-12-21 23:59 | disposition home or self-care (01) | LOC: CCIC 14:33 | PROVIDERS: PCP Family Medicine; Visit Provider Physician Assistant | DX: N60.91 Unspecified benign mammary dysplasia of right breast (principal); N60.92 Unspecified benign mammary dysplasia of left breast; Z86.73 Personal history of transient ischemic attack (TIA), and cerebral infarction without residual deficits; Z79.82 Long term (current) use of aspirin; M85.80 Other specified disorders of bone density and structure, unspecified site | CPT/HCPCS: 99214; G0463 ==

== ENCOUNTER 2024-08-21 12:39 | Outpatient (CLI) | payer MEDICARE, SELFPAY ==
--- NOTE | 2024-08-21 13:00 | CRLHL7_ITS ---
For Patients: As a result of the Century Cures Act, medical imaging exams and procedure reports are released immediately into your electronic medical record. You may view this report before your referring provider. If you have questions, please contact your health care provider. XR DXA BONE MINERAL DENSITY (BMD) Current height (in): 60.0. Weight (lb): 133.0. Menopause age: 45. Ethnicity: White. Reason for exam: senior care (current) use of aromatase inhibitors. 1. Have you had a previous hip or vertebral fracture? No. 2. Have you had any fractures during your adult life which did not result from significant trauma (e.g., auto accident)? No. 3. Did either of your parents have a hip fracture? No. 4. Do you smoke? No. 5. Have you ever taken Glucocorticoids? No. 6. Do you have rheumatoid arthritis? No. 7. Do you have secondary osteoporosis? No. 8. Do you drink 3 or more alcoholic drinks per day? No. 9. Are you being treated for osteoporosis? No. 10. Have you ever taken any of the following medications: Actonel, Evista, Fosamax, Miacalcin, Reclast, Boniva, Forteo, HRT (i.e. estrogen/hormone therapy), Protelos, Prolia, Vitamin D, Calcium, other ??? please specify. ANSWER: Yes, vitamin D, HRT. 11. Do you have any of the following medical conditions: Anorexia or bulimia, asthma or emphysema, end stage renal disease, hyperparathyroidism, any seizure disorders, cancer, inflammatory bowel diseases, hysterectomy, other ??? please specify. ANSWER: No. 12. What was your maximum height (inches)? 62. 13. Do you perform weight bearing exercise regularly? No. 14. Do you regularly consume dairy products? Yes. 15. Do you drink caffeinated beverages? Yes. 16. At what age did your period start? 13. 17. Are you premenopausal? No. 18. How many full-term pregnancies have you had? 4. 19. Have you ever missed your period for more than 6 months in a row (not including or menopause)? No. TECHNIQUE: Bone mineral density study was performed using the [employer]. FINDINGS: The results of the study expressed as bone mineral density (BMD) are as follows: Lumbar spine L1 to L3: BMD: 1.238 g/cm2. T-score: 2.0. Z-score: 4.6 Neck Left: BMD: 0.626 g/cm2. T-score: -2.0. Z-score: 0.2 Right: BMD: 0.624 g/cm2. T-score: -2.0. Z-score: 0.2 Total Left: BMD: 0.904 g/cm2. T-score: -0.3. Z-score: 1.7 Right: BMD: 0.824 g/cm2. T-score: -1.0. Z-score: 1.0 IMPRESSION: Osteopenia. FRAX 10-year Fracture Risk Major Osteoporotic Fracture: 15 percent Hip Fracture: 4.2 percent Reported Risk Factors: [place] () Neck BMD = 0.624, BMI = 26.0 Monster Harmon M.D. Diagnostic Radiologist [email or web address] Transcribed: 2:00 pm DW/Dictated by: Monster Harmon MD @ 08/21/2024 1:43:00 PM (Electronically Signed)
== END 2024-08-21 12:40 | disposition home or self-care (01) ==
LOC: RAD 12:40
PROVIDERS: PCP Family Medicine; Visit Provider Physician Assistant
DX: M85.89 Other specified disorders of bone density and structure, multiple sites (principal); Z79.811 Long term (current) use of aromatase inhibitors
CPT/HCPCS: 77080